=== PATIENT | male | born 2000 | race Caucasian/White ===

== ENCOUNTER 2024-06-04 22:54 | Emergency (ER) | payer BC, MEDICAID ==
[2024-06-04] MEDS ORDERED: ZOFRAN ODT 4 MG ONE (23:05)
[2024-06-04] MEDS: ZOFRAN ODT 4 MG PO ONE (23:06)
[2024-06-04 23:18] VITALS: TEMP 95.8
[2024-06-05 00:06] LABS: Absolute Neutrophil Ct (ANC) 7.56 x10^3/uL (1.78-5.38); BASOPHIL % 0.6 % (0.2-1.2); Basophil (Absolute #) 0.07 x10^3/uL (0.01-0.08); Eosinophil % 3.1 % (0.8-7.0); Eosinophil (Absolute #) 0.34 x10^3/uL (0.04-0.54); Hematocrit 44.6 % (40.1-51.0); Hemoglobin 14.9 g/dL (13.7-17.5); IMMATURE GRAN # 0.03 x10^3u/L (0.001-0.031); IMMATURE GRAN % 0.3 % (0.001-0.429); Lymphocyte (Absolute #) 2.28 x10^3/uL (1.32-3.57); Lymphocytes % 20.6 % (21.8-53.1); Mean Cell Volume 90.3 fL (79.0-92.2); Mean Corpuscular Hemoglobin 30.2 pg (25.7-32.2); Mean Corpuscular Hgb Concent. 33.4 g/dL (32.3-36.5); Mean Platelet Volume 9.4 fL (9.4-12.4); Monocyte (Absolute #) 0.77 x10^3/uL (0.30-0.82); Neutrophil % 68.4 % (34.0-67.9); Platelet Count 243 x10^3/uL (163-337); Red Blood Count 4.94 x10^6/uL (4.63-6.08); Red Cell Distribution Width 12.8 % (11.6-14.4); White Blood Count 11.1 x10^3/uL (4.23-9.07)
--- NOTE | 2024-06-05 00:13 | ERPHSYRPT ---
- History of Present Illness Time Seen by Provider: 06/04/24 23:07 Source: patient, family, EMS Exam Limitations: clinical condition Patient Subjective Stated Complaint: c/o syncopal episode Triage Nursing Assessment: Patient brought into ED by ambulance with c/o syncopal episode and vomiting in the ambulance. Patient's mother states she heard a thump and when she went into patient's room he was face down on the floor unresponsive. Mother is unaware if patient has seizure or if patient hit head or had LOC. Patient is diaphoretic, pale, restless. Patient has low- functioning autism, temp of 95.8 temporaliy, patient refused to let staff get an axillary or oral temp. Gait steady, patient has teeth wilson on the side of tongue, but doesn't have a history of seizures per patient's mother, patient isn't in any distress at this time. Physician History: 23-year-old with history of autism is brought in the ER by EMS after mom noticed patient fell in his room and she immediately found him unconscious. Per mom he was diaphoretic, not responding and pale looking. He was waking up on EMS arrival and did have couple of episodes of nonprojectile, nonbilious vomiting without hematemesis and route to the ER. Patient is awake alert and at his baseline on presentation in the ER. He has nausea. He denies any abdominal pain. Per mom he is back to his baseline. No difficulty breathing. No seizure-like activity noticed by mom. Allergies/Adverse Reactions: No Known Drug Allergies Allergy (Verified 06/04/24 23:27) Home Medications: Polyethylene Glycol 3350 [Miralax] 17 gm PO HS 06/04/24 [History] Sertraline HCl [Zoloft] 75 mg PO DAILY 06/04/24 [History] clonazePAM [Clonazepam] 0.25 mg PO DAILY PRN PRN 06/05/24 [History] Hx Tetanus, Diphtheria Vaccination/Date Given: No Hx Influenza Vaccination/Date Given: No Hx Pneumococcal Vaccination/Date Given: No Travel Risk - International Travel Have you traveled outside of the country in past 3 weeks: No - Emerging Infectious Disease Symptoms: Vomitting - Review of Systems All Other Systems: Unable due to condition - Past Medical History Pertinent Past Medical History: Yes Other Medical History: AUTISM - Past Surgical History Past Surgical History: No - Social History Smoking Status: Never smoker Exposure to second hand smoke: No Drug Use: none - Social Determinants of Health Will the patient participate in the screening: Declined to provide - Nursing Vital Signs Nursing Vital Signs: Initial Vital Signs Temperature 95.8 F 06/04/24 22:57 Pulse Rate 94 H 06/04/24 22:57 Respiratory Rate 22 06/04/24 22:57 Blood Pressure 118/64 06/04/24 22:57 O2 Sat by Pulse Oximetry 97 06/04/24 22:57 Pain Scale Pain Intensity 0 - Physical Exam General Appearance: no apparent distress, alert Eye Exam: PERRL/EOMI Ears, Nose, Throat Exam: TMs normal, pharynx normal, moist mucous membranes, other (Tongue bite at lateral sides) Neck Exam: normal inspection, non-tender, supple, full range of motion Respiratory Exam: normal breath sounds, lungs clear Cardiovascular Exam: regular rate/rhythm, normal heart sounds Gastrointestinal/Abdomen Exam: soft, normal bowel sounds, No tenderness Extremity Exam: normal inspection, normal range of motion Neurologic Exam: alert, oriented x 3, cooperative, heritage consultant II-XII nml as tested, nml station & gait, sensation nml, No motor deficits Skin Exam: normal color SpO2 Interpretation: normal SpO2: 97 O2 Delivery: Room Air - Course EKG Interpreted by Me: RATE, Sinus Rhythm, NORMAL AXIS, NORMAL INTERVALS, NORMAL QRS Ordered Tests: Active Orders 24 hr Category Date Time Status EKG-ER Only STAT Care 06/04/24 23:09 Active IV Insertion STAT Care 06/04/24 23:07 Active NPO (ED) STAT Care 06/04/24 23:07 Active ABDOMEN AND PELVIS W/0 CONTRAS [CT] Stat Exams 06/04/24 23:47 Completed HEAD WITHOUT CONTRAST [CT] Stat Exams 06/04/24 23:47 Completed CULTURE,URINE Stat Lab 06/05/24 00:11 Received Lactic Acid Stat Lab 06/04/24 23:07 Completed TROPONIN Q4H Lab 06/05/24 03:15 Ordered TROPONIN Q4H Lab 06/05/24 07:15 Ordered UA W/RFX UR CULTURE Stat Lab 06/05/24 00:11 Completed Medication Summary Generic Name Dose Route Start Last Admin Trade Name Freq PRN Reason Stop Dose Admin Levetiracetam 1,000 mg/ 110 mls @ 220 mls/hr 06/05/24 01:43 Dextrose IV 06/05/24 02:12 STAT ONE Discontinued Medications Generic Name Dose Route Start Last Admin Trade Name Mita PRN Reason Stop Dose Admin Sodium Chloride 1,000 mls @ 999 mls/hr 06/04/24 23:07 06/05/24 01:27 Sodium Chloride 0.9% 1000 Ml IV 06/05/24 00:07 Infused .Q1H1M STA Infusion Sodium Chloride Confirm 06/05/24 00:23 Sodium Chloride 0.9% 1000 Ml Administered 06/05/24 00:24 Dose 1,000 mls @ ud .ROUTE .STK-MED ONE Ondansetron HCl 4 mg 06/04/24 23:04 06/04/24 23:06 Zofran 4 Mg/Udtablet Orally Disintegrating PO 06/04/24 23:05 4 mg STAT ONE Administration Ondansetron HCl Confirm 06/04/24 23:05 Zofran 4 Mg/Udtablet Orally Disintegrating Administered 06/04/24 23:06 Dose 4 mg .ROUTE .STK-MED ONE Ondansetron HCl 4 mg 06/04/24 23:07 06/05/24 00:30 Ondansetron Hcl 4 Mg/2 Ml Vial IV 06/04/24 23:08 Not Given STAT ONE Lab/Rad Data: Laboratory Result Diagrams 06/04/24 00:01 06/04/24 00:01 Laboratory Results 06/05/24 06/05/24 06/04/24 Range/Units 00:11 00:01 00:01 WBC (4.23-9.07) x10^3/uL RBC (4.63-6.08) x10^6/uL Hgb (13.7-17.5) g/dL Hct (40.1-51.0) % MCV (79.0-92.2) fL MCH (25.7-32.2) pg MCHC (32.3-36.5) g/dL RDW (11.6-14.4) % Plt Count (163-337) x10^3/uL MPV (9.4-12.4) fL Gran % (34.0-67.9) % Immature Gran % (Auto) (0.001-0.429) % Nucleat RBC Rel Count (0.00-0.2) % Eos # (Auto) (0.04-0.54) x10^3/uL Immature Gran # (Auto) (0.001-0.031) x10^3u/L Absolute Lymphs (auto) (1.32-3.57) x10^3/uL Absolute Monos (auto) (0.30-0.82) x10^3/uL Absolute Nucleated RBC (0.00-0.012) x10^3u/L Lymphocytes % (21.8-53.1) % Monocytes % (5.3-12.2) % Eosinophils % (0.8-7.0) % Basophils % (0.2-1.2) % Absolute Granulocytes (1.78-5.38) x10^3/uL Basophils # (0.01-0.08) x10^3/uL Sodium (135-145) mmol/L Potassium (3.5-5.1) mmol/L Chloride (98-107) mmol/L Carbon Dioxide (22-30) mmol/L Anion Gap (5-15) MEQ/L BUN (9-20) mg/dL Creatinine (0.66-1.25) mg/dL Estimated GFR ML/MIN Glucose (74-106) mg/dL Lactic Acid 5.5 H (0.4-2.0) Calcium (8.4-10.2) mg/dL Total Bilirubin (0.2-1.3) mg/dL AST (17-59) U/L ALT (0-50) U/L Alkaline Phosphatase (38-126) U/L Troponin I < 0.012 (0.000-0.033) ng/mL Serum Total Protein (6.3-8.2) g/dL Albumin (3.5-5.0) g/dL Lipase (23-300) U/L Urine Color Yellow (Yellow) Urine Appearance Cloudy A (Clear) Urine pH 5.5 (4.6-8.0) Ur Specific [place] 1.025 (1.005-1.030) Urine Protein 100 A (Negative) Urine Glucose (UA) >=1000 A (Negative) mg/dL Urine Ketones Trace A (Negative) Urine Blood Trace (Negative) Urine Nitrite Negative (Negative) Urine Bilirubin Negative (Negative) Urine Urobilinogen 0.2 (0.2) mg/dL Ur Leukocyte Esterase Negative (Negative) U Hyaline Cast (Auto) NONE SEEN (0-2) /LPF Urine Microscopic RBC 0-2 (0-5) /HPF Urine Microscopic WBC 3-5 (0-5) /HPF Ur Epithelial Cells None Seen (None Seen) /HPF Urine Bacteria None Seen (None Seen) /HPF Urine Sperm Many A (None Seen) /HPF Urine Culture Reflexed YES (NO) 06/04/24 06/04/24 Range/Units 00:01 00:01 WBC 11.1 H (4.23-9.07) x10^3/uL RBC 4.94 (4.63-6.08) x10^6/uL Hgb 14.9 (13.7-17.5) g/dL Hct 44.6 (40.1-51.0) % MCV 90.3 (79.0-92.2) fL MCH 30.2 (25.7-32.2) pg MCHC 33.4 (32.3-36.5) g/dL RDW 12.8 (11.6-14.4) % Plt Count 243 (163-337) x10^3/uL MPV 9.4 (9.4-12.4) fL Gran % 68.4 H (34.0-67.9) % Immature Gran % (Auto) 0.3 (0.001-0.429) % Nucleat RBC Rel Count 0.0 (0.00-0.2) % Eos # (Auto) 0.34 (0.04-0.54) x10^3/uL Immature Gran # (Auto) 0.03 (0.001-0.031) x10^3u/L Absolute Lymphs (auto) 2.28 (1.32-3.57) x10^3/uL Absolute Monos (auto) 0.77 (0.30-0.82) x10^3/uL Absolute Nucleated RBC 0.00 (0.00-0.012) x10^3u/L Lymphocytes % 20.6 L (21.8-53.1) % Monocytes % 7.0 (5.3-12.2) % Eosinophils % 3.1 (0.8-7.0) % Basophils % 0.6 (0.2-1.2) % Absolute Granulocytes 7.56 H (1.78-5.38) x10^3/uL Basophils # 0.07 (0.01-0.08) x10^3/uL Sodium 138 (135-145) mmol/L Potassium 4.3 (3.5-5.1) mmol/L Chloride 104 (98-107) mmol/L Carbon Dioxide 20 L (22-30) mmol/L Anion Gap 17.9 H (5-15) MEQ/L BUN 20 (9-20) mg/dL Creatinine 0.77 (0.66-1.25) mg/dL Estimated GFR 127.4 ML/MIN Glucose 152 H (74-106) mg/dL Lactic Acid (0.4-2.0) Calcium 10.2 (8.4-10.2) mg/dL Total Bilirubin 0.60 (0.2-1.3) mg/dL AST 50 (17-59) U/L ALT 69 H (0-50) U/L Alkaline Phosphatase 71 (38-126) U/L Troponin I (0.000-0.033) ng/mL Serum Total Protein 8.2 (6.3-8.2) g/dL Albumin 5.0 (3.5-5.0) g/dL Lipase 68 (23-300) U/L Urine Color (Yellow) Urine Appearance (Clear) Urine pH (4.6-8.0) Ur Specific [place] (1.005-1.030) Urine Protein (Negative) Urine Glucose (UA) (Negative) mg/dL Urine Ketones (Negative) Urine Blood (Negative) Urine Nitrite (Negative) Urine Bilirubin (Negative) Urine Urobilinogen (0.2) mg/dL Ur Leukocyte Esterase (Negative) U Hyaline Cast (Auto) (0-2) /LPF Urine Microscopic RBC (0-5) /HPF Urine Microscopic WBC (0-5) /HPF Ur Epithelial Cells (None Seen) /HPF Urine Bacteria (None Seen) /HPF Urine Sperm (None Seen) /HPF Urine Culture Reflexed (NO) - Progress Progress: improved Progress Note: 06/05/24 00:58 23-year-old with a history of heart-ism is evaluated in the ER after he was found unresponsive in the room by mom with no seizure-like activity noticed. Patient also vomited and route to the ER. Ambulatory in the ER. Not in any distress. White count of 11, chemistries with some element of dehydration with minimally elevated gap and mildly low bicarb. Patient had a lactate of 5.5 but no obvious focus of infection. Patient is at his baseline. He is given Zofran and patient has no nausea. Obtained CT head which is negative for any acute intracranial findings. CT abdomen pelvis is negative as well for any acute abdominal pelvic findings. Urinalysis showed greater than 1000 glucose, which is concerning to me and as patient might have diabetes. Glucose is only 150s. Is given fluid bolus. I believe elevated lactate is possibly secondary to new onset seizure. 06/05/24 01:44 I have obtain [facility] [place] neurolog[place] consult, neurology does agree that patient possibly had a seizure specially with a tongue bite and being diaphoretic. Recommended IV loading dose of Keppra and starting on 500 mg Keppra twice a day and observation admission with MRI/EEG. I have shared the results of workup and neurology recommendations with patient's family which they understand but do not want to stay in the hospital at all. Per parents "it would be really difficult for him to stay in the hospital". They do understand the risk of leaving against the medical advice which would not only delay the diagnosis but worsening of condition/morbidity/disability which could be life-threatening. Discussed with Dr.: Other (Dr. Lv CENTENO neurology) Counseled pt/family regarding: lab results, diagnosis, need for follow-up, rad results, smoking cessation Medical Desision Making - Independent Historian Additional History obtained from: Mother, Father, Regional Transfer Liaison/EMT - Discussion of managment Care discussed with:: specialist (Dr. Lv CENTENO neurology) Reviewed:: Test results Agreed on:: Treatment plan, need for follow-up Will see patient: in ED - Diagnostic Testing Diagnostic test were ordered, analyzed, and reviewed by me: Yes Radiological Interpretation: Reviewed by me, Teleradiologist Report - Risk of complications The pt has a mod risk of morbidity or mortality based on: Need for prescription drug management - Departure Departure Disposition: AMA Clinical Impression: Syncope and collapse, New onset seizure Condition: Stable Critical Care Time: No Referrals: DOCTOR,NO FAMILY [Primary Care Provider] - Follow up/PCP as directed Instructions: Syncope (Fainting) (DC), Seizures, Adult ED Additional Instructions: Plenty of fluids. Follow-up with primary care and need referral neurology for further evaluation. Need outpatient MRI, EEG and further evaluation of elevated glucose to rule out diabetes mellitus. Close observation for next 24 to 48 hours with frequent neurochecks. Return to ER for worsening of symptoms like having confusion seizure-like activity, intractable nausea vomiting etc. Prescriptions: Levetiracetam [Keppra] 500 mg PO BID 30 Days #300 ml
--- NOTE | 2024-06-05 00:20 | XRAY ---
CLINICAL HISTORY: syncope COMPARISON: None. TECHNIQUE: Multiple axial images are obtained from the skull base to the vertex without contrast. CT scan was performed according to ALARA (as low as reasonable achievable). FINDINGS: The brain shows normal morphology, attenuation, and volume for age. No evidence of space occupying lesion, hemorrhage, edema, mass effect, midline shift, extra axial collection, or hydrocephalus is noted. Ventricles, sulci, and basal cisterns are symmetric and normal in size and configuration. The florence-white matter differentiation is preserved. Visualized paranasal sinuses and mastoid air cells are well aerated. Orbital contents are within normal limits. Bony structures are intact. IMPRESSION: 1. No evidence of acute intracranial abnormality is demonstrated Electronically Signed by: Myron Ghotra MD. (06/05/2024 00:17:08 EST)
[2024-06-05] MEDS ORDERED: Sodium Chloride 0.9% 1000 ML 1,000 ML ONE (00:23)
[2024-06-05] MEDS: Sodium Chloride 0.9% 1000 ML 1,000 ML IV STA (00:24)
--- NOTE | 2024-06-05 00:25 | XRAY ---
CLINICAL HISTORY: vomiting COMPARISON: None. TECHNIQUE: Contiguous axial images were obtained from the level of the diaphragm to the pubic symphysis without intravenous or oral contrast. Coronal and sagittal reconstructions were likewise performed and indicated to increase the sensitivity for detecting clinically relevant pathology. CT scan was performed according to ALARA (as low as reasonable achievable). FINDINGS: The visualized lung bases are clear. Evaluation of the abdominal and pelvic visceral organs is limited without intravenous contrast. The unenhanced liver, spleen, pancreas, and adrenal glands are grossly unremarkable. The gallbladder is present. The kidneys are normal in size and attenuation without obvious calcification. There is no hydronephrosis or perinephric stranding. The ureters are normal in caliber. No adenopathy or fluid collections are seen. No evidence of focal or diffuse bowel wall thickening or evidence of bowel obstruction is seen. The appendix is visualized in the right lower quadrant and appears within normal limits. The aorta is normal in caliber. The urinary bladder is normal in contour. Pelvic viscera are grossly unremarkable. No aggressive appearing osseous lesions are identified. IMPRESSION: 1. Unremarkable study. Electronically Signed by: Myron Ghotra MD. (06/05/2024 00:20:49 EST)
[2024-06-05 00:26] LABS: ANION GAP 17.9 MEQ/L (5-15); BILIRUBIN,TOTAL 0.6 mg/dL (0.2-1.3); Calcium 10.2 mg/dL (8.4-10.2); Creatinine 1 0.77 mg/dL (0.66-1.25); EST GLOMERULAR FILTRATION RATE 127.4 ML/MIN; Potassium 4.3 mmol/L (3.5-5.1); Total Protein 8.2 g/dL (6.3-8.2)
[2024-06-05 00:29] VITALS: RESP 19
[2024-06-05] MEDS: Zofran 4 MG/2 ML VIAL IV ONE (00:30)
[2024-06-05 00:37] LABS: Appearance Cloudy (Clear); Bacteria None Seen /HPF (None Seen); Bilirubin Negative (Negative); Blood Trace (Negative); Epithelial Cells None Seen /HPF (None Seen); Glucose, Urine >=1000 mg/dL (Negative); Hyaline Casts NONE SEEN /LPF (0-2); Ketones Trace (Negative); Leukocyte Esterase Negative (Negative); Nitrite Negative (Negative); Ph 5.5 (4.6-8.0); Protein,Urine Dip 100 (Negative); RBC 0-2 /HPF (0-5); Specific Gravity 1.025 (1.005-1.030); Sperm Many /HPF (None Seen); Urobilinogen 0.2 mg/dL (0.2)
[2024-06-05] MEDS ORDERED: Keppra 500 MG/5 ML ONE (01:46)
[2024-06-05] MEDS ORDERED: D5w 100ML Mini Bag 100 ML 100 ML IV ONE (01:47)
[2024-06-05] MEDS: Keppra 500 MG/5 ML*** 1,000 MG in D5w 100ML Mini Bag 100 ML 100 ML IV ONE (01:48)
[2024-06-05 02:03] VITALS: BP 113/75; PULSE 90; O2SAT 96
== END 2024-06-05 02:53 | disposition home or self-care (01) ==
LOC: ED 22:54
DX: R55 Syncope and collapse (principal); R56.9 Unspecified convulsions; R11.2 Nausea with vomiting, unspecified
CPT/HCPCS: 36415; 70450; 74176; 80053; 81001; 83605; 83690; 84484; 85025; 87086; 93005; 96365; 99284; 99285; J1953; Q0162